=== PATIENT | female | born 1980 | race Caucasian/White ===

== ENCOUNTER → 2020-08-02 09:54 | Outpatient (CLI) | payer BC, SELFPAY ==
--- NOTE | ~2020-08-02 | MM_ITS ---
EXAMINATION: MM screening kristin BI w sukhjinder HISTORY: Screening mammogram TECHNIQUE: Craniocaudal and mediolateral oblique 3-D tomosynthesis images were obtained and synthetic 2-D images were generated. CAD analysis was submitted and interpreted. COMPARISON: No prior mammogram is available for comparison at this institution. BREAST PARENCHYMAL COMPOSITION: There are scattered areas of fibroglandular density. FINDINGS: There is no evidence of suspicious mass, calcification, or architectural distortion to sugg est malignancy in either breast. There has been no suspicious interval change. IMPRESSION: 1. No mammographic evidence of malignancy. 2. Recommend routine screening mammography in one year. BI-RADS Category 1: Negative Reviewed, dictated and finalized at location A.
== END ==
PROVIDERS: PCP Family Medicine; Visit Provider Nurse Practitioner
DX: Z12.31 Encounter for screening mammogram for malignant neoplasm of breast (principal)
CPT/HCPCS: 77063; 77067

== ENCOUNTER → 2023-05-05 14:12 | Outpatient (CLI) | payer BC, SELFPAY ==
--- NOTE | ~2023-05-05 | US_ITS ---
Pelvic ultrasound. Clinical History: Pelvic pain Technique: Realtime transabdominal and transvaginal scanning of the pelvis was performed. Color flow Doppler and Doppler spectral analysis were performed. Findings: The uterus is anteverted. The endometrial stripe has a thickness of 6 mm. IUD in satisfact ory position. No focal mass is identified. The right ovary is suboptimally visualized, but measures approximately 4.1 x 4.3 x 3.0 cm. No signif icant right ovarian or adnexal mass is seen. The left ovary is suboptimally visualized, but measures approximately 2.3 x 2.1 x 2.0 cm. No signifi cant left ovarian or adnexal mass is seen. There is no evidence of free fluid in the cul de sac. Impression: IUD in satisfactory position. Ovaries are questionably identified, without definite abnormal mass lesion. Reviewed, dictated and finalized at [facility]. Impression: IUD in satisfactory position. Ovaries are questionably identified, without definite abnormal mass lesion.
--- NOTE | ~2023-05-05 | MM_ITS ---
EXAMINATION: MM screening kristin BI w sukhjinder HISTORY: Screening mammogram TECHNIQUE: Craniocaudal and mediolateral oblique 3-D tomosynthesis images were obtained and synthetic 2-D images were generated. CAD analysis was submitted and interpreted. COMPARISON: 08/02/2020 bilateral screening mammogram examination BREAST PARENCHYMAL COMPOSITION: There are scattered areas of fibroglandular density. FINDINGS: There is no evidence of suspicious mass, calcification, or architectural distortion to sugg est malignancy in either breast. There has been no suspicious interval change. IMPRESSION: 1. No mammographic evidence of malignancy. 2. Recommend routine screening mammography in one year. BI-RADS Category 1: Negative Reviewed, dictated and finalized at location A.
== END ==
PROVIDERS: PCP Family Medicine; Visit Provider Nurse Practitioner
DX: Z12.31 Encounter for screening mammogram for malignant neoplasm of breast (principal); R10.2 Pelvic and perineal pain; Z97.5 Presence of (intrauterine) contraceptive device
CPT/HCPCS: 76830; 76856; 77063; 77067

== ENCOUNTER 2023-11-17 08:43 | Outpatient (CLI) | payer BC, SELFPAY ==
--- NOTE | ~2023-11-17 | CT_ITS ---
CT Scan of the Chest without Contrast: Clinical Indication: Pulmonary nodule Technique: Contiguous sections were acquired throughout the chest without intravenous contrast. Dose reduction technique was used on this scan by utilizing automated exposure control and iterative recon struction technique. The dose-length product (DLP) was 72.81 mGy-cm. Findings: There is no evidence of any significant mediastinal, hilar or axillary lymphadenopathy. The mediastin al soft tissues appear normal. There is no evidence of pleural or pericardial effusion. There is a 5.5 mm left upper lobe pulmonary nodule (axial image 35). Images through the upper abdomen reveal no abnormalities. Impression: 5.5 mm left upper lobe pulmonary nodule. According to Fleischner Society criteria, for a low-risk pat ient, no further follow-up required. For a high-risk patient, consider 12 month follow-up CT. Reviewed, dictated and finalized at [facility]. 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 According to Fleischner Society criter ia, for a low-risk patient, no further follow-up required. For a high-risk rachelle ent, consider 12 month follow-up CT.
== END 2023-11-17 08:44 ==
PROVIDERS: PCP Physician Assistant; Visit Provider Physician Assistant
DX: R91.1 Solitary pulmonary nodule (principal)
CPT/HCPCS: 71250

== ENCOUNTER 2023-11-20 06:58 | Outpatient (CLI) | payer BC, SELFPAY ==
[2023-11-20 07:12] LABS: Hematocrit 47.6 % (35.0-49.0); Hemoglobin 15.8 g/dL (12.0-15.0); Mean Corpuscular HGB Conc 33.2 g/dL (32.0-36.0); Mean Corpuscular Hemoglobin 31.5 pg (27.0-31.0); Mean Corpuscular Volume 94.8 fL (78.0-102.0); Mean Platelet Volume 8.4 fl (9.2-11.8); Platelet Count Result 358 K/mm3 (150-420); Red Blood Count 5.02 M/mm3 (4.20-5.40); Red Cell Distribution Width 12.2 % (11.6-14.4); White Blood Count 11.1 K/mm3 (4.8-10.8)
[2023-11-20 08:12] LABS: Alanine Aminotransferase 19 U/L (14-59); Albumin Level 3.7 g/dL (3.4-5.0); Alkaline Phosphatase 85 U/L (46-116); Anion Gap 9 mmol/L (8-16); Aspartate Amino Transferase 13 U/L (15-37); Bilirubin,Total 0.7 mg/dL (0.00-1.00); Blood Urea Nitrogen 5 mg/dL (7-18); Calcium 8.7 mg/dL (8.5-10.1); Carbon Dioxide 28 mmol/L (21-32); Chloride 104 mmol/L (98-108); Cholesterol 239 mg/dL (0-200); Estimated Glomerular Filt Rate > 60; Free T4 Free Thyroxine 0.96 ng/dL (0.76-1.46); Glucose 95 mg/dL (70-99); HDL Direct 48 mg/dL (40-60); LDL Cholesterol Calculated 170 mg/dL (<130); Osmolality Calculated 289 mOsm/kg (285-295); Potassium 4.1 mmol/L (3.5-5.1); Sodium 141 mmol/L (136-145); Thyroid Stimulating Hormone 1.43 uIU/mL (0.36-3.74); Total Protein 6.6 g/dL (6.4-8.2); Triglycerides 107 mg/dL (0-150)
== END 2023-11-20 06:59 | disposition home or self-care (01) ==
LOC: CHSLAB 07:01
PROVIDERS: PCP Family Medicine; Visit Provider Physician Assistant
DX: Z13.1 Encounter for screening for diabetes mellitus (principal); R53.83 Other fatigue; Z13.220 Encounter for screening for lipoid disorders
CPT/HCPCS: 36415; 80053; 80061; 84439; 84443; 85027

== ENCOUNTER 2025-01-27 06:59 | Outpatient (CLI) | payer BC, SELFPAY ==
--- OUTSIDE RECORDS SUMMARY | 2025-01-27 07:08 | XMS_ITS | Continuity of Care Document ---
Author Organization [facility] Address [address] [employer] [facility] [place] [address] Phone Care Team Providers Care Mental Health Clinician Name Role Phone Camilo Tobias MD Unavailable Unavailable Allergies, Adverse Reactions, Alerts Substance Reaction Status Criticality cat dander ItchingRed EyesSwelling around eyesWatery eye Active No Information Medications Medication Instructions Dosage Effective Dates (start - stop) Status Comments Maxalt 10 mg tablet take 1 tablet by oral route once, may repeat at 2 hour intervals; do not exceed 30 mg in 24 hours as needed 10 MG - Active PRN for migraine Ajovy 225 mg/1.5 mL subcutaneous auto-injector inject (225MG) by subcutaneous route every month in the abdomen, thigh, or upper arm 225 MG - Active Adderall XR 20 mg capsule,extended release take 1 capsule by oral route every day in the morning - Active Lexapro 20 mg tablet take 1 tablet by oral route every day 20 MG - Active Zocor 20 mg tablet take 1 tablet by oral route every day in the evening 20 MG - Active Procedures Procedure Date OFFICE/OUTPATIENT VISIT, EST OFFICE/OUTPATIENT VISIT, EST PREV VISIT, NEW, AGE 40-64 OFFICE/OUTPATIENT VISIT, NEW Advance Directives Directive Yes / No Effective Date File Name No Information Encounters Encounter Description Practice Location Reason(s) For Visit Diagnoses Date Provider Providers Copied on Encounter OFFICE/OUTPA TIENT VISIT, EST [facility], [address] [place], [id number], [place] tel:[phone] [facility] ADD (chief complaint) HLP (chief complaint) anxiety1 (chief complaint) migraine1 (chief complaint) Attention deficitGeneralized Anxiety DisorderMixed hyperlipidemiaMigra ine without aura, not intractable, without status migrainosus [address] Jatinder Page. [address], [place], [place], [id number] , [place]. tel:[phone] OFFICE/OUTPA TIENT VISIT, EST [facility], [address], [place], [place], [id number], [place] [phone] [facility] URI1 (chief complaint) ADD (chief complaint) Attention deficitViral infection 5 Jatinder Page. [address], [place], [place], [id number] , [place]. tel:[phone] PREV VISIT, NEW, AGE 40-64 [facility], [address], [place], [place], [id number], [place] [phone] [facility] physical (chief complaint) Encounter for general adult medical exam w abnormal findingsMixed hyperlipidemiaGener alized Anxiety DisorderAttention deficit 5 Jatinder Page. [address], [place], [place], [address] , [place]. tel:[phone] Family History Family Member Type Diagnosis Age At Onset Mother Problem Stroke 55 Father Problem of ? heart attack 55 Brother Problem Alive and well Payers Payer name Insurance type Covered libertarian ID Zenia ferguson(s) BS CI [id number] Social History Type Description Quantity Date Captured Comments Alcohol Use Details No Caffeine Use Details Unknown Tobacco Use Status Current non-smoker Smoking Status Never smoker Sex Female Vital Signs Date / Time: Height Weight BMI Pulse Rate Blood Pressure Temperature Respiratory Rate Body Surface Area Head Circumference BMI percentile Pulse Ox Inhaled Ox 3:16 PM 68.50 in 195.80 lbs 29.3 4 kg/m eter (2) 76 /min 120/70 mm[Hg] 98.0 F 16 /min Chief Complaint And Reason For Visit From encounter dated '01/26/2025 15:07'. ADD (chief complaint). Description: Patient has ADD. Patient has inattentive type. Patient feels scatterbrained. Patient feel poor focus and difficulty completing tasks. Patient states that Adderall is helping with symptoms. Patient feels more focused. Pt feels more energy. Patient denies any headache, dry mouth, headache, chest pain. Patient denies any appetite loss. HLP (chief complaint). Description: Pt has HLP Pt takes zocor .Pt denies any myalgia Pt has not done lab yet anxiety1 (chief complaint). Description: Pt has chronic anxiety and depression Pt takes lexapro anddoing ok pt denies any suicidal or homicidal thought Pt denies any crying spells migraine1 (chief complaint). Description: Pt has chronic migraine for many years Pt has throbbing headache with nausea and vomiting on temporal area, triggered by some smell and food and lack of rest. Pt takes maxalt PRn which works ok. Pt has headache 3 times per month. Plan Of Treatment Date Type Action Status Appointment Michelle Oquendo BOOKED History Of Present Illness Encounter Date Complaint History Of Prese nt Illness ADD Patient has ADD. Patient has inattentive type. Patient feels scatterbrained. Patient feel poor focus and difficulty completing tasks. Patient states that Adderall is helping with symptoms. Patient feels more focused. Pt feels more energy. Patient denies any headache, dry mouth, headache, chest pain. Patient denies any appetite loss. HLP Pt has HLP Pt ta kes zocor .Pt denies any myalgia Pt has not done lab yet anxiety1 Pt has chronic a nxiety and depression Pt takes lexapro and doing ok pt denies any suicidal or homicidal thought Pt denies any crying spells migraine1 Pt has chronic m igraine for many years Pt has throbbing headache with nausea and vomiting on temporal area, triggered by some smell and food and lack of rest. Pt takes maxalt PRn which works ok. Pt has headache 3 times per month. URI1 Pt notices acute onset of mild sore throat, sinus congestion postnasal drainage ,cough for two days Pt denies any fever, chill, sob . ADD Patient has ADD. Patient has inattentive type. Patient feels scatterbrained. Patient feel poor focus and difficulty completing tasks. Patient states that Adderall is helping with symptoms. Patient feels more focused. Pt feels more energy. Patient denies any headache, dry mouth, headache, chest pain. Patient denies any appetite loss. physical Pt needs annual physical Pt has history of HLP Pt has been on zocor for the past year. Pt denies any myalgia. Pt has chronic anxiety and depression Pt is on lexapro and doing ok Pt denies any suicidal or homicidal thought .Pt denies any crying spells Pt also has ADD pt was on adderall about one year ago which was started by previous PCP and she did very well but her psychiatrist did not want her to continue on adderall and started her on wellbutrin for ADD but is not working and her psychiatrist is leaving and she went back to her previous PCP who does not want to attend her psychiatry need anymore and told her to find new psychiatrist which she does not want. Pt denies any other complaints Instructions Date Instruction Additional Infor mation No Information Assessments Type Assessment Date assessment Attention deficit assessment Generalized Anxiety Disorder Jan assessment Mixed hyperlipidemia assessment Migraine without aur a, not intractable, without status migrainosus Mental Status Date Cognitive Assessment Orientation - Perris ed to time, place, person, situation.
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
--- OUTSIDE RECORDS SUMMARY | 2025-01-27 07:08 | XMS_ITS | Patient Health Record ---
Author Organization [facility] Address [address] [facility] [address] [place] [address] Care Team Providers Care Social Services Assistant Name Role Phone Mana Perez MD Primary Care Provider Jacob Packer Unavailable [phone] Edilia Beckman Unavailable [phone] Migration, Provider Unavailable Unavailable Allergies No Known Allergies Reason For Referral No Information Medications Medication SIG (Take, Route, Frequency, Duration) Notes Start Date End Date Status Clobetasol Propionate 0.05% External 12/10/2023 Active Botox 200 unit Injection 12/10/2023 Acti ve Ondansetron 4 MG Oral 12/10/2023 Ac tive Simvastatin 20 MG Oral 12/10/2023 A ctive Rizatriptan Benzoate 10 MG Oral 12/10/2023 Active Benadryl *Reorder from [facility] for eRx and Interaction Alerts* 12/10/2023 Not-Taking buPROPion HCl ER (XL) 300 MG 1 tablet in the morning Orally Once a day for 90 days 11/11/2024 Active ALPRAZolam 0.5 MG Oral 12/10/2023 N ot-Taking Atomoxetine HCl 80 MG 1 capsule every morning Oral Once a day for 90 days 12/10/2023 02/27/2025 Active Escitalopram Oxalate 20 MG 1 tablet Oral Once a day for 90 days Active Social History Sex Assigned At : Social History Observation Description Sex Assigned At Female Problems Problem Type SNOMED Code ICD Code Onset Dates Problem Status W/U Status Risk Notes Problem [id number] Major depressive disorder, recurrent severe without psychotic features (F33.2) Active confirmed Problem Recurrent major depression (79538247) Major depressive disorder, recurrent, unspecified (F33.9) Active confirmed Problem Generalized anxiety disorder (08548834) Generalized anxiety disorder (F41.1) Active confirmed Problem Post-traumatic stress disorder (40258094) Post-traumatic stress disorder, unspecified (F43.10) Active confirmed Problem 03493857 Attention defici t hyperactivity disorder (ADHD), combined type (F90.2) Active confirmed Vital Signs Heart Rate 70 /min 11/29/2024 Height-cm 172.72 cm 11/29/2024 Blood pressure diastolic 79 mm Hg 11/29/2024 Weight-kg 89.81 kg 11/29/2024 Height 68.00 in 11/29/2024 Blood pressure systolic 130 mm Hg 11/29/2024 Weight 198 lbs 11/29/2024 BMI 30.1 kg/m2 11/29/2024 Encounters Encounter Location Date Provider Diagnosis [facility] [address] [address] 02/02/2024 Provider Migration Major depressive disorder, recurrent, unspecified F33.9 [facility] [address] 07/22/2024 Thena Coleman Major depressive disorder, recurrent, unspecified F33.9 ; Generalized anxiety disorder F41.1 ; Post-traumatic stress disorder, unspecified F43.10 and Attention deficit hyperactivity disorder (ADHD), combined type F90.2 [facility] [place] [address] [address] 09/22/2024 Thena Coleman Major depressive disorder, recurrent, unspecified F33.9 ; Generalized anxiety disorder F41.1 ; Post-traumatic stress disorder, unspecified F43.10 and Attention deficit hyperactivity disorder (ADHD), combined type F90.2 [facility] [place] [address] [facility] [address] [address] 10/28/2024 Thena Coleman Major depressive disorder, recurrent, unspecified F33.9 ; Generalized anxiety disorder F41.1 ; Post-traumatic stress disorder, unspecified F43.10 and Attention deficit hyperactivity disorder (ADHD), combined type F90.2 [facility] [address] [address] 11/29/2024 Edilia Beckman Major depressive disorder, recurrent severe without psychotic features F33.2 ; Generalized anxiety disorder F41.1 ; Post-traumatic stress disorder, unspecified F43.10 ; Attention deficit hyperactivity disorder (ADHD), combined type F90.2 and Other [facility] (current) drug therapy Z79.899 [facility], [facility] [address] [place] [address] 02/20/2024 Provider Migration [facility], [facility] [address] [place] [address] 02/21/2024 Provider Migration [facility], [facility] [address] [place] [address] 07/19/2024 Thena Coleman [facility], [facility] [address] [place] [address] 07/24/2024 Thena Coleman [facility], [facility] [address] [place] [address] 09/19/2024 Thena Coleman [facility], [facility] [address] [place] [address] 09/19/2024 Thena Coleman [facility], [facility] [address] [place] [address] 10/13/2024 Thena Coleman [facility], [facility] [address] [place] [address] 10/14/2024 Thena Coleman [facility], [facility] [address] [place] [address] 10/28/2024 Thena Coleman [facility], [facility] [address] [place] [address] 11/09/2024 Thena Coleman Major depressive disorder, recurrent, unspecified F33.9 [facility], [place] [address] [place] [address] 11/09/2024 Thena Coleman [facility], [facility] [address] [place] [address] 11/10/2024 Thena Coleman Assessments Encounter Date Diagnosis (ICD Code) Assessment Notes Treatment Notes Treatment Clinical Notes Section Notes 07/22/2024 Major depressive disorder, recurrent, unspecified (ICD-10 - F33.9) 11/09/2024 Major depressive disorder, recurrent, unspecified (ICD-10 - F33.9) 07/22/2024 Generalized anxiety disorder (ICD-10 - F41.1) 11/29/2024 Major depressive disorder, recurrent severe without psychotic features (ICD-10 - F33.2) Common side effects of Wellbutrin include insomnia, increased anxiety, nausea, dizziness, decreased appetite, restlessness, irritability and anger, increased sweating or hot flashes, tremors, joint pain. Wellbutrin is not recommended in individuals with a history of seizures. If side effects persist, please contact the office. 11/29/2024 Generalized anxiety disorder (ICD-10 - F41.1) SSRI/SNRI side effects discussed including but not limited to, gastric upset, nausea, vomiting, diarrhea and/or constipation, weight changes, sexual side effects including loss of libido, increased suicidal thoughts/behavior s in children and young adults, and serotonin syndrome. 02/02/2024 Major depressive disorder, recurrent, unspecified (ICD-10 - F33.9) 09/22/2024 Major depressive disorder, recurrent, unspecified (ICD-10 - F33.9) 09/22/2024 Generalized anxiety disorder (ICD-10 - F41.1) 10/28/2024 Major depressive disorder, recurrent, unspecified (ICD-10 - F33.9) 10/28/2024 Generalized anxiety disorder (ICD-10 - F41.1) 10/28/2024 Post-traumatic stress disorder, unspecified (ICD-10 - F43.10) 09/22/2024 Post-traumatic stress disorder, unspecified (ICD-10 - F43.10) 11/29/2024 Post-traumatic stress disorder, unspecified (ICD-10 - F43.10) 07/22/2024 Post-traumatic stress disorder, unspecified (ICD-10 - F43.10) 07/22/2024 Attention deficit hyperactivity disorder (ADHD), combined type (ICD-10 - F90.2) 09/22/2024 Attention deficit hyperactivity disorder (ADHD), combined type (ICD-10 - F90.2) 10/28/2024 Attention deficit hyperactivity disorder (ADHD), combined type (ICD-10 - F90.2) 11/29/2024 Attention deficit hyperactivity disorder (ADHD), combined type (ICD-10 - F90.2) Discussed risks/benefits/al ternatives to atomoxetine, including GI side effects, weight loss, irritability, constipation, sexual dysfunction, increase in blood pressure and liver damage. Patient denies any h/o cardiovascular disease, including hypertension, tachyarrhythmias. 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 Educated on proper dosing schedule and importance of compliance. Labs ordered to rule out medical causes of fatigue. Discussed consider sleep study if fatigue persists. Has follow up with PCP in February Previous records from Dr Cee reviewed -Assessment and treatment plan reviewed with patient. -Compliance with treatment plan importance discussed. -Discussed the risks/benefits of this medication -Discussed medication side effects. -Contact office if symptoms worsen. -Discussed that it can take up to 6-8 weeks to see full therapeutic effects of psychotropic medications. -Crisis prevention hotline 567. Plan Of Treatment Pending Test Test Name Order Date THYROID PANEL WITH TSH (7444) 11/29/2024 COMPREHENSIVE METABOLIC PANEL (07091) CBC (INCLUDES DIFF/PLT) (6399) HEMOGLOBIN A1c (496) 11/29/2024 VITAMIN B12/FOLATE, SERUM PANEL (7065) 0 11/29/2024 VITAMIN D,25-OH,TOTAL,IA (03511) 025 Insurance Providers Payer Name Payer Address Payer Phone Subscriber Number Group Number Insured Name Patient Relationship to Insured Coverage Start Date Coverage End Date [facility] [employer] [address] [place] [address] [id number] CELESTINA GUTIERREZ Self - patient is the insured Medical (General) History Medical History History ICD Code Problems: Chronic recurrent major depres sive disorder Generalized anxiety disorder Posttraumatic stress disorder , Surgical History Surgery Date(Month/Year) Other 01/17/2005 Any surgical history 02/12/2022
--- OUTSIDE RECORDS SUMMARY | 2025-01-27 07:08 | XMS_ITS | Clinical Summary ---
Author Organization [facility] Address [address] [place] [address] Care Team Providers Care Bilingual Sales Representative Name Role Phone Mana Perez MD Primary Care Provider [phone] Allergies No known active allergies Medications nortriptyline (PAMELOR) 25 mg capsule take 1 (25MG) by Oral route every bedtime for one week then increase to 2 (50MG) daily at bedtime. 60 5 6 Active levocetirizine (XYZAL) 5 mg tablet take 1 tablet by oral route every day in the evening 0 0 6 Active montelukast (SINGULAIR) 10 mg tablet take 1 tablet by oral route every day in the evening 0 0 6 Active riboflavin (Vitamin B-2) 100 mg tablet Four tablets daily. 120 5 6 Active albuterol HFA (PROVENTIL HFA,VENTOLIN HFA,PROAIR HFA) 90 mcg/actuation inhalerIndicatio ns:Lower respiratory infection Inhale 2 puffs every 4 (four) hours as needed for wheezing or shortness of breath 1 each 5 Active Active Problems No known active problems Surgical History Surgery Date Site/Laterality Comments SECTION OTHER SURGICAL HISTORY right leg surgery Medical History Medical History Date Comments Hx Other Medical Headache, migra ine Family History Medical History Relation Name Comments Other Maternal Grandmother Headach es, migraines; Hypertension Mother Hypertension; Other Mother Headaches, migr aines; Stroke Mother Stroke; Relation Name Status Comments Maternal Grandmother Mother Social History Tobacco Use Types Packs/Day Years Used Date Smoking Tobacco: Never Alcohol Use Standard Drinks/Week Comments Yes 0 (1 standard drink = 0.6 oz pur e alcohol) Comments No Sex and Gender Information Value Date Recorded Sex Assigned at Not on file 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3 cm (5' 9 ) 10/18/2024 11:41 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 Body Mass Index 28.06 10/18/2024 11:41 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 Plan of Treatment Health Maintenance Due Date Last Done Comments Breast Cancer Screening-Mammogram 1979 Cervical Cancer Screening 1979 Colon Cancer Screening-Colonoscopy 1979 Depression Screening 1979 Hepatitis C Screening 1979 DTaP/Tdap/Td Vaccine (1 - Tdap) 1990 Hepatitis B Screening 1997 Regular Well Visit/Exam 18-64 1997 Influenza Vaccine (#1) 2024 HPV Vaccines Aged Out No longer eligi ble based on patient's age to complete this topic Pneumococcal vaccine <65 Aged Out No longer eligible based on patient's age to complete this topic Insurance [employer]UE [employer] CHOICE OOS Member Subscriber Plan / Payer (Ef fective 2022-Present) Name:Michelle Oquendo Relation to Subscriber:Spouse Name:GABE OQUENDO Date of :1975 (Home) Address: [address] [place] [address] Payer ID:[id number] (NAIC) Type: [employer] Address: [facility] [id number] [place] [id number] Care Teams Bilingual Sales Representative Relationship Specialty Start Date End Date Mana Perez MD PCP - General 08/25/16
--- OUTSIDE RECORDS SUMMARY | 2025-01-27 07:08 | XMS_ITS | CONTINUITY OF CARE DOCUMENT ---
Author Name petros morrell Address Unknown Organization [facility] Address [address] [place] [address] Phone [phone] Care Team Providers Care Group Leader Name Role Phone petros morrell Unavailable Unavailable
--- OUTSIDE RECORDS SUMMARY | 2025-01-27 07:08 | XMS_ITS | Referral Summary ---
Author Organization [facility] 163 [facility] Address [address] [facility] [address] Care Team Providers Care Wedding Planner Name Role Phone Mana Perez MD Primary Care Provider [phone] Allergies No known active allergies Medications nortriptyline [...] Active Active Problems No known active problems Social History Tobacco Use Types Packs/Day Years Used Date Smoking Tobacco: Never Alcohol Use Standard Drinks/Week Comments Yes 0 (1 standard drink = 0.6 oz pur e alcohol) Comments No Sex and Gender Information Value Date Recorded Sex Assigned at Not on file 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 Gender Identity Not on file Sexual Orientation Not on file Last Filed Vital Signs Vital Sign Reading Time Taken Comments Blood Pressure 108/54 10/18/2024 11:41 AM UNDERWRITING ANALYST Pulse 109 10/18/2024 12:18 PM UNDERWRITING ANALYST Temperature 37.9 C (100.3 F) 10/18/2024 11:41 AM UNDERWRITING ANALYST Respiratory Rate 17 10/18/2024 12:18 PM UNDERWRITING ANALYST Oxygen Saturation 97% 10/18/2024 12:18 PM UNDERWRITING ANALYST Inhaled Oxygen Concentration - - Weight 86.2 kg (190 lb) 10/18/2024 11:41 AM UNDERWRITING ANALYST Height 175.3 cm (5' 9 ) 10/18/2024 11:41 AM UNDERWRITING ANALYST Body Mass Index 28.06 10/18/2024 11:41 AM UNDERWRITING ANALYST Plan of Treatment Not on file Insurance [employer] [facility] Address: [facility] [id number] [place] [address] Care Teams Wedding Planner Relationship Specialty Start Date End Date Mana Perez MD PCP - General 08/25/16
[2025-01-27 07:21] LABS: Basophils Absolute Auto 0.04 K/mm3 (0.00-0.10); Basophils Percent Auto 0.5 % (0.0-1.0); Eosinophils Absolute Auto 0.42 K/mm3 (0.02-0.50); Eosinophils Percent Auto 4.8 % (1.0-6.0); Hematocrit 43.4 % (35.0-49.0); Hemoglobin 14.1 g/dL (12.0-15.0); Immature Granulocyte Absolute 0.02 K/mm3 (0.00-0.00); Immature Granulocyte Percent A 0.2 % (0.0-0.0); Lymphocytes Absolute Auto 2.95 K/mm3 (1.10-4.50); Lymphocytes Percent Auto 33.8 % (18.0-42.0); Mean Corpuscular HGB Conc 32.5 g/dL (32-36); Mean Corpuscular Volume 95.4 fL (78.0-102.0); Mean Platelet Volume 8.8 fl (9.2-11.8); Monocytes Absolute Auto 0.59 K/mm3 (0.10-0.90); Monocytes Percent Auto 6.8 % (2.0-11.0); Neutrophils Percent Auto 53.9 % (50.0-70.0); Platelet Count Result 308 K/mm3 (150-420); Red Blood Count 4.55 M/mm3 (4.20-5.40); Red Cell Distribution Width 12.7 % (11.6-14.4); White Blood Count 8.7 K/mm3 (4.8-10.8)
[2025-01-27 07:30] LABS: Add Urine Microscopic? YES; Appearance Urine Clear (Clear); Bilirubin Urine Negative (Negative); Blood Urine 1+ (Negative); Color Urine Yellow (Yellow); Glucose Urine UA Negative (Negative); Ketones Urine Negative (Negative); Leukocyte Esterase Ur Negative LEU/UL (Negative); Nitrate Urine Negative (Negative); Protein Urine Negative (Negative); pH Urine 6.5 (5.0-8.0)
[2025-01-27 07:38] LABS: Amphetamine Screen Urine Positive (Negative); Barbiturate Screen Urine Negative (Negative); Benzodiazepines Screen Urine Negative (Negative); Cannabinoid Screen Urine Positive (Negative); Cocaine Screen Urine Negative (Negative); Methadone Screen Urine Negative (Negative); Opiate Screen Urine Negative (Negative); Phencyclidine Screen Urine Negative (Negative)
[2025-01-27 07:47] LABS: Bacteria Urine Trace /hpf; Mucus Urine Few /lpf; Squamous Epithelial Cell Urine Few /hpf (Few); WBC Urine None seen /hpf (0-3)
[2025-01-27 08:03] LABS: Thyroid Stimulating Hormone Reflex 1.01 u/IU/mL (0.36-3.74)
[2025-01-27 08:18] LABS: Alanine Aminotransferase 22 U/L (14-59); Albumin Level 3.5 g/dL (3.4-5.0); Alkaline Phosphatase 97 U/L (46-116); Anion Gap 6 mmol/L (4-12); Aspartate Amino Transferase 31 U/L (15-37); Bilirubin Direct 0.1 mg/dL (0-0.2); Bilirubin,Total 0.3 mg/dL (0.00-1.00); Blood Urea Nitrogen 3 mg/dL (7-18); Calcium 8.4 mg/dL (8.5-10.1); Carbon Dioxide 30 mmol/L (21-32); Chloride 106 mmol/L (98-108); Cholesterol 162 mg/dL (0-200); Estimated Glomerular Filt Rate > 60; Folic Acid 14.5 ng/mL (8.6->20); Glucose 93 mg/dL (70-99); HDL Direct 44 mg/dL (40-60); LDL Cholesterol Calculated 104 mg/dL (<130); Osmolality Calculated 290 mOsm/kg (285-295); Phosphorus 2.9 mg/dL (2.6-4.7); Potassium 3.6 mmol/L (3.5-5.1); Sodium 142 mmol/L (136-145); Total Protein 6.4 g/dL (6.4-8.2); Triglycerides 72 mg/dL (0-150); Vitamin B12 404 pg/mL (193-986)
== END 2025-01-27 07:00 | disposition home or self-care (01) ==
PROVIDERS: PCP Emergency Medicine; Visit Provider Emergency Medicine
DX: E78.2 Mixed hyperlipidemia (principal); F41.1 Generalized anxiety disorder; R41.840 Attention and concentration deficit; Z79.899 Other long term (current) drug therapy
CPT/HCPCS: 36415; 80061; 80069; 80076; 80307; 81001; 82607; 82746; 84443; 85025